=== PATIENT | male | born 1950 | race Two or more races ===

== ENCOUNTER → 2022-01-06 13:56 | Outpatient (BNVA) | payer MEDICARE, SELFPAY | PROVIDERS: PCP Internal Medicine; Visit Provider Hospitalist | DX: G47.31 Primary central sleep apnea (principal); I50.9 Heart failure, unspecified; R47.01 Aphasia; J90 Pleural effusion, not elsewhere classified; R06.00 Dyspnea, unspecified | CPT/HCPCS: 99212 ==

== ENCOUNTER → 2022-07-15 14:02 | Outpatient (BNVA) | payer MEDICARE, SELFPAY | PROVIDERS: PCP Internal Medicine; Visit Provider Hospitalist | DX: G47.31 Primary central sleep apnea (principal); I50.9 Heart failure, unspecified; R47.01 Aphasia; J90 Pleural effusion, not elsewhere classified; R06.00 Dyspnea, unspecified | CPT/HCPCS: 99212 ==

== ENCOUNTER → 2022-10-16 14:43 | Outpatient (REF) | payer MEDICARE, SELFPAY | LOC: HO.SL 14:43 | PROVIDERS: Visit Provider Hospitalist | DX: G47.33 Obstructive sleep apnea (adult) (pediatric) (principal); G47.31 Primary central sleep apnea | CPT/HCPCS: 95806 ==

== ENCOUNTER 2023-05-22 14:26 | Outpatient (AMB) | payer MEDICARE, SELFPAY ==
--- NOTE | 2023-05-22 14:30 | MHC.OFFVIS ---
Intake Vital Signs 05/22/23 14:32 Height 5 ft 9 in Weight 186 lb BMI 27.5 Pulse 81 Pulse Source Pulse Oximeter Pulse Oximetry (%) 96 Oxygen Delivery Method Room Air Intake Visit Reasons: Obstructive sleep apnea Alley Tender Required: No Allergies No Known Allergies Allergy (Verified 05/22/23 14:34) HPI HPI Comments History of Present Illness Details The patient is a 72-year-old gentleman with a known history of cardiomyopathy, complex sleep apnea and cerebrovascular disease. Apparently he was at and states he started developing worsening shortness of breath. He was admitted to a hospital for congestive heart failure. While was coming [place] state his noticed increasing lower extremity edema and shortness of breath not abdominal girth. She crease is Lasix briefly. The patient then was taken to [facility] on the night after his arrival because of worsening shortness of breath and respiratory distress. The patient had a proBNP of 5000 and also an x-ray with extensive pulmonary edema. Based on the evaluation was told to take additional oral diuretic and was sent home. However, his condition obviously worsen he was taken to [facility] he was admitted to the hospital. There he was evaluated by Cardiology. He had an ejection fraction about 40% per report. The patient also had a CT scan of the chest but I do not have those results was noted to have pleural effusions. However with picture of congestive heart failure the patient was diuresed. He did not require thoracentesis. Subsequently was discharged from the hospital on Lasix twice a day. Since he has been discharged from the hospital was has wane him closely. Will we will we lb since he was discharged couple days a on examination does have some crackles bilaterally suggestive of congestive heart failure. I did recommend that he take an additional Lasix tablet today. Will continue to be monitored closely. He is trying to maintain a low-sodium or note sodium diet as much as possible. The patient That will see Cardiology due to try to avoid rehospitalization. The medications will be adjusted the the patient had full doctor had that in the hospital so therefore I will will get a referral for urgent visit with [facility] cardiology. in the meantime he has been using CPAP. Patient understands that the CPAP becomes helpful but decrease in some of the work from the heart. 07/15/2022 the patient is here for a pulmonary follow-up visit. Overall the patient continues to be doing about the same. Continues to have issues with his residual infection his stroke. Still has aphasia and difficulty following commands. Otherwise patient is doing well. He continues uses CPAP at nighttime. The CPAP therapy continues to be affecting beneficial. He does use it for more than 4 hours a night. Recently however the machine has not been working appropriately. He and his spoke to the [employer] and they still recommend that he get a replacement machine at this time. In view of this mi function machine any significant cerebrovascular and cardiovascular disease will be important for her to get a replacement machine for him to continue to use it treating his underlying sleep apnea. We did review his last imaging studies including a chest x-ray from the fall 2021 when he had congestive heart failure. The patient now is doing better with his medications and his cardiac function appears to be stable. 05/22/2023 the patient is here for a hospital follow-up visit. The patient has had a very eventful 6 months. He has been in and out of [facility] for heart failure. The patient has had significant flash pulmonary edema resulted in respiratory failure. The patient has been followed closely by Cardiology. He also developed a component of renal insufficiency suggesting pulmonary renal syndrome. The states that at 1 point they did talk to her about hospice care because of significant cardiomyopathy. I do not have his EF. Does have a defibrillator. The defibrillator did go off because of ventricular fibrillation. Currently he is on amiodarone small dose of 200 mg daily. He is also on Eliquis. Continues uses CPAP the CPAP therapy continues to be affecting beneficial. I did request a download. Appears that he is having significant central apneas because of his complex sleep apnea. Prior to having the CPAP he did have an ASV. However, now with a cardiomyopathy this is not warranted. Therefore, will go head and try to decrease the CPAP pressures in order to avoid worsening central apneas. [facility] Medical History (Updated 05/24/23 @ 21:28 by Manny Dodd MD) Dyspnea Pleural effusion Aphasia Complex sleep apnea syndrome Social History (Updated 01/06/22 @ 14:37 by SHANNON Donahue) Patient Tobacco Use Status: Never used Tobacco Review of Systems Const Unobtainable due to mental condition ( Patient suffers from aphasia after a CVA) Card Reports leg edema, Reports dyspnea and Reports dyspnea on exertion Resp Reports dyspnea and Reports dyspnea on exertion Physical Exam Vital Signs: Last Vital Signs Pulse 81 05/22/23 14:32 Pulse Ox 96 05/22/23 14:32 Oxygen Delivery Method Room Air 05/22/23 14:32 BMI result Body Mass Index 27.5 Const General: comfortable HEENT Head: Yes normal to inspection Eyes General: appearance normal, both eyes and all related structures Neck Neck: Yes supple Chest Chest palpation & inspection: normal inspection of the chest Resp Effort & Inspection: normal respiratory effort Auscultation: diminished lung sounds Cardio Rate: regular rate Rhythm: regular rhythm Heart sounds: S1 normal heart sound present, S2 normal heart sound present and Murmur heart sound present GI Auscultation: normal bowel sounds Skin General skin exam: no rashes or lesions noted Extrem General: No clubbing, No cyanosis and Yes edema Assessment & Plan Assessment & Plan (1) CHF (congestive heart failure): Code(s): I50.9 - Heart failure, unspecified Qualifiers: Heart failure type: systolic Heart failure chronicity: chronic Qualified Code(s): I50.22 - Chronic systolic (congestive) heart failure (2) Complex sleep apnea syndrome: Code(s): G47.31 - Primary central sleep apnea (3) Aphasia: Code(s): R47.01 - Aphasia (4) Pleural effusion: Code(s): J90 - Pleural effusion, not elsewhere classified (5) Dyspnea: Code(s): R06.00 - Dyspnea, unspecified Qualifiers: Dyspnea type: orthopnea Qualified Code(s): R06.01 - Orthopnea Plan Diuresis as tolerated continue APAP, adjusted to 6-10 Follow-up in 6 months Coding Level of Care Code Est Pt Level 4 (45554) Diagnoses Chronic systolic congestive heart failure I50.22 Heart failure type: systolic Heart failure chronicity: chronic Complex sleep apnea syndrome G47.31 Aphasia R47.01 Pleural effusion J90 Orthopnea R06.01 Dyspnea type: orthopnea Time Spent (min) 18
[2023-05-22 14:32] VITALS: PULSE 81; O2SAT 96; BMI 27.5
== END 2023-05-22 15:01 | disposition home or self-care (01) ==
PROVIDERS: PCP Internal Medicine; Visit Provider Hospitalist
DX: I50.22 Chronic systolic (congestive) heart failure (principal); G47.31 Primary central sleep apnea; R47.01 Aphasia; J90 Pleural effusion, not elsewhere classified; R06.01 Orthopnea
CPT/HCPCS: 99214

== ENCOUNTER → 2023-05-22 14:26 | Outpatient (BNVA) | payer MEDICARE, SELFPAY | PROVIDERS: PCP Internal Medicine; Visit Provider Hospitalist | DX: G47.31 Primary central sleep apnea (principal); I50.22 Chronic systolic (congestive) heart failure; R47.01 Aphasia; J90 Pleural effusion, not elsewhere classified; R06.01 Orthopnea | CPT/HCPCS: 99212 ==

== ENCOUNTER 2023-08-12 14:11 | Outpatient (REF) | payer MEDICARE, SELFPAY ==
--- NOTE | ~2023-08-12 | FL_ITS ---
EXAMINATION: Modified Barium Swallow CLINICAL INFORMATION: Dysphagia COMPARISON: None TECHNIQUE: Modified barium swallow was performed under lateral fluoroscopy with patient in standing position. Barium mixed with solids and liquids of different consistencies was administered by the speech pathologist. Examination was recorded in the fluoroscopy suite. FINDINGS: Laryngeal penetration was seen with thin and nectar thick barium. No aspiration was observed. FLUOROSCOPY TIME: 2 minutes 18 seconds Number of Spot Images: 1 DOSE AREA PRODUCT: 892 uGy-m2 (microgray-meter squared) FL/FL barium swallow modified IMPRESSION: Laryngeal penetration was seen with thin and nectar thick barium. No aspiration was observed. Refer to the speech therapy report for further clarification This procedure was performed by Isaias Caicedo PA-C, and supervised by Dr. Smith
--- NOTE | 2023-09-11 14:35 | MHC.SL.IMP ---
Date of Plan of Treatment: 08/12/23 Onset of Symptoms/Illness: 07/07/23 Date Treatment Started: 08/12/23 Admitting Diagnosis: Dysphagia Primary Speech & Language Diagnosis: R13.12 Oropharyngeal Phase Dysphagia Reason for Today's Visit: 08078 Modified Barium Swallow Study Pre-evaluation Dietary Consistencies: Pre-evaluation Liquid Consistency: Pre-evaluation Medication Administration: Medical History: Modified Barium Swallow Study Fluoroscopic Evaluation of Swallowing Function CPT Code 86361 Evaluation Year: 2023 Reason for Study: Difficulty swallowing Referring Physician: Ronnie Ochoa MD Evaluating Clinician: Alva Addison MA, CCC-ENGAGEMENT LIAISON Study Number: 1 Patient Name: Eris Vilchis Status: Outpatient Age: 73 Gender: Male Medical History Dyspnea, pleural effusion, aphasia, complex sleep apnea syndrome, cardiomyopathy, cerebrovascular disease SUBJECTIVE: Patient is a 73 year old male referred for a modified barium swallow study by his primary care physician, Ronnie Ochoa MD, due to reports of choking. Patient?s reports patient is vomiting and expectorating food at meal time, especially when he has certain foods such as hot cereal with tea. Food and Liquid Trials: Oral Impairment: Lip Closure: Did not test Oral Impairment: Tongue Control During Bolus Hold: Did not test Oral Impairment: Bolus Preparation/Mastication: 1=Slow prolonged chewing/mashing with complete re-collection Oral Impairment: Bolus Transport/Lingual Motion: 1= Delayed initiation of tongue motion Oral Impairment: Oral Residue: 2=Residue collection on oral structures Oral Impairment:Initiation of Pharyngeal Swallow: 3=Bolus head in pyriforms Pharyngeal Impairment: Soft Palate Elevation: 0=No bolus between soft palate (SP)/pharyngeal wall (PW) Pharyngeal Impairment: Laryngeal Elevation: 1=Partial thyroid cartilage/arytenoids to epiglottic petiole movement Pharyngeal Impairment: Anterior Hyoid Excursion: 1=Partial anterior movement Pharyngeal Impairment: Epiglottic Movement: 1=Partial inversion Pharyngeal Impairment: Laryngeal Vestibular Closure:: 1=Incomplete: narrow column air/contrast in laryngeal vestibule Pharyngeal Impairment: Pharyngeal Stripping Wave: 0=Present: complete Pharyngeal Impairment: Pharyngeal Contraction: Did not test Pharyngeal Impairment: Pharyngoesophageal Segment Openin=Partial distention/partial duration: partial obstruction of flow Pharyngeal Impairment: Tongue Base (TB) Retraction: 3=Wide column of contrast/air between TB and posterior PW Pharyngeal Impairment: Pharyngeal Residue: 2=Collection of residue within or on pharyngeal structures Pharyngeal Impairment: Esophageal Clearance Upright Position: Did not test Impressions and Recommendations OBJECTIVE: Time-out: performed at 15:00 Evaluation Start: 14:30; Stop: 14:35 Viewing Planes: LATERAL ONLY Contrast: MBSImP? Standardized Protocol using commercially prepared, standardized Barium viscosities, including: Varibar? THIN LIQUID (40% w/v, <15 cps) , Varibar? NECTAR (40% w/v, <150-450 cps) , 1/2 Shortbread Cookie (1 x1 x.25 ) MBSImP ID: [id number] MBSImP Results: Lip closure for intraoral bolus containment could not be assessed due to logistical reasons not related to physiologic impairment. Tongue control during bolus hold could not be assessed due to logistical reasons not related to physiologic impairment. Bolus preparation and mastication resulted in slow, prolonged chewing/mashing but with complete re-collection. Bolus transport/lingual motion demonstrated delayed initiation of tongue motion. Oral residue was a collection on oral structures. Initiation of the pharyngeal swallow occurred when the bolus head was in the pyriform sinuses. Soft palate elevation resulted in no bolus between the soft palate and the pharyngeal wall. Laryngeal elevation was decreased, with partial superior movement of the thyroid cartilage/partial approximation of the arytenoids to the epiglottic petiole. Anterior hyoid excursion demonstrated partial anterior movement. Epiglottic movement resulted in partial inversion. Laryngeal vestibular closure was incomplete, with a narrow column of air/contrast noted within the laryngeal vestibule at the height of the swallow. Pharyngeal stripping wave was present and complete. Pharyngeal contraction could not be determined due to logistical reasons not related to physiologic impairment. Pharyngoesophageal segment opening demonstrated partial distension/partial duration, with partial obstruction of bolus flow. Tongue base retraction allowed a wide column of contrast or air between the retracted tongue base and the posterior pharyngeal wall. Pharyngeal residue was a collection of residue within or on pharyngeal structures. Esophageal clearance in the upright position could not be assessed due to logistical reasons not related to physiologic impairment. Oral Impairment Score: 7 (absence of score, component 1component 2) Pharyngeal Impairment Score: 10 (absence of score, component 13) Esophageal Impairment Score: --- (absence of score, component 17) Laryngeal Penetration and Aspiration: Penetration was observed in today's study. Darby-thick Contrast entered the airway, remained above the vocal folds, and was ejected from the airway. Thin Contrast entered the airway, contacted the vocal folds, and was ejected from the airway. ASSESSMENT: This exam was conducted by the speech pathologist and the radiologist. Oral and pharyngeal phases of the swallow were assessed in the lateral view with patient trialing thin, nectar thick, puree, and regular solid textures. Note prolonged period of mastication with delayed posterior lingual transport of bolus. Pharyngeal swallow trigger was also delayed, initiated at the level of the pyriforms. Post-swallow, there was mild lingual residue, which mostly cleared with subsequent swallows. No evidence of nasopharyngeal reflux. Partial laryngeal elevation with partial epiglottic inversion and partial laryngeal vestibular closure. There was trace penetration intermittently occurring with intake of thin liquid. Contrast entered the airway to the level of the vocal folds and was ejected with subsequent swallows and when patient elicited a volitional throat clear. There was trace penetration above the vocal folds with intake of nectar thick, which subsequently cleared. No evidence of aspiration during this exam. Mild retention on the posterior pharyngeal wall and in the valleculae and pyriform sinuses. Liquid Intake Recommendation: Thin Liquid Intake Strategies: Small Sips, No Straws, Double Swallow Dietary Recommendations: Regular- Select soft, easy to chew Medication Administration: Whole with Puree Please contact the pharmacy regarding appropriate crushable or liquid drug formulations that are available whenever modified delivery is recommended. Compensatory Strategies Recommended: Sitting Upright (90 deg), Double Swallow, No Straw, Small Bites and Sips, Alternate Liquids/Solids, Rate of Ingestion Change, Oral Check, Avoid Specific Foods Supervision during eating and or drinking: Total Assistance (1:1) Recommendation for Speech Therapy: Text Comment: Intake Recommendations: Route: PO Diet Grade: Select soft easy to chew foods Liquid Consistencies: Thin Post-Study Functional Oral Intake Scale (FOIS): 5- Total oral intake of multiple consistencies requiring special preparation This exam revealed trace penetration with thin and nectar thick consistencies. Cleared with volitional throat clear and subsequent swallows. No evidence of aspiration during this exam. Mild oral and pharyngeal residue mostly cleared with subsequent swallows. Based on observations made during this exam, the following strategies are recommended to maximize feeding safety: -Minimize distraction during meal time -Ensure patient is awake, alert, and attending to meal -Select foods which are soft and easy to chew -Avoid hard, crunchy, or sticky foods and mixed textures -Give small bites of food -Watch for swallow and check oral cavity for clearance before giving next bite -Maintain upright 90 degree position while eating and drinking -Liquids by teaspoon or controlled cup and give small, individual sips -Watch for swallow and check oral cavity for clearance before giving next sip -Cue patient to clear his throat between sips as needed -Avoid the use of straws -Maintain frequent oral care routine. These recommendations were communicated to patient?s /caregiver after the exam. ENGAGEMENT LIAISON educated patient and his on MBSS results and recommended strategies and provided clarification as needed. Patient?s denied having any further questions at this time. Recommend patient?s caregiver(s) to continue monitoring his dysphagia. If there are any changes or worsening of symptoms, consult with MD, at which point a re-evaluation may be indicated. Clinician - Supplemental, Miscellaneous Communication: It is important to note MBSS objective studies are snapshots in time and Patient function might vary with factors such as time of day or concomitant medical conditions. For this reason, the final treatment plan for this patient should rest with their medical care team. Additional recommendations should be considered with the totality of the Patient in mind. Thank for the opportunity to participate in the care of this patient. If you have any questions about the content of this report, please contact the [facility]. Education: Education regarding findings from today's study and plans for therapy were provided to Patient and family/caregiver through Verbal Instruction. Understanding was expressed by the Patient and family/caregiver. Toe Puncher Clinician/Clinical Fellow: No Supervisory Statement: N/A Speech Language Pathologist: Alva Addison M.A., [facility]-ENGAGEMENT LIAISON
== END 2023-08-12 14:12 | disposition home or self-care (01) ==
LOC: HO.XRAY 14:11
PROVIDERS: PCP Internal Medicine; Visit Provider Internal Medicine
DX: R13.10 Dysphagia, unspecified (principal)
CPT/HCPCS: 74230; 92611

== ENCOUNTER → 2023-08-12 14:25 | Outpatient (BNV) | payer MEDICARE, SELFPAY | PROVIDERS: PCP Internal Medicine; Visit Provider Physician Assistant Surgical | DX: R13.10 Dysphagia, unspecified (principal) | CPT/HCPCS: 74230 ==

== ENCOUNTER 2023-11-26 14:08 | Outpatient (AMB) | payer MEDICARE, SELFPAY ==
[2023-11-26 14:14] VITALS: BP 90/58; PULSE 71; O2SAT 100; BMI 26.7
--- NOTE | 2023-11-26 14:14 | MHC.OFFVIS ---
Vital Signs 11/26/23 14:14 Height 5 ft 9 in Weight 181 lb BMI 26.7 BP 90/58 L Blood Pressure Location Lt brachial Position Sitting Pulse 71 Pulse Source Doppler Pulse Oximetry (%) 100 Oxygen Delivery Method Room Air Intake Visit Reasons: Obstructive sleep apnea Allergies No Known Allergies Allergy (Verified 05/22/23 14:34) HPI Comments Details: The patient is a 73-year-old gentleman with a known history of cardiomyopathy, complex sleep apnea and cerebrovascular disease. Apparently he was at and states he started developing worsening shortness of breath. He was admitted to a hospital for congestive heart failure. [place] his noticed increasing lower extremity edema and shortness of breath not abdominal girth. She crease is Lasix briefly. The patient then was taken to [facility] on the night after his arrival because of worsening shortness of breath and respiratory distress. The patient had a proBNP of 5000 and also an x-ray with extensive pulmonary edema. Based on the evaluation was told to take additional oral diuretic and was sent home. However, his condition obviously worsen he was taken to [facility] he was admitted to the hospital. There he was evaluated by Cardiology. He had an ejection fraction about 40% per report. The patient also had a CT scan of the chest but I do not have those results was noted to have pleural effusions. However with picture of congestive heart failure the patient was diuresed. He did not require thoracentesis. Subsequently was discharged from the hospital on Lasix twice a day. Since he has been discharged from the hospital was has wane him closely. Will we will we lb since he was discharged couple days a on examination does have some crackles bilaterally suggestive of congestive heart failure. I did recommend that he take an additional Lasix tablet today. Will continue to be monitored closely. He is trying to maintain a low-sodium or note sodium diet as much as possible. The patient That will see Cardiology due to try to avoid rehospitalization. The medications will be adjusted the the patient had full doctor had that in the hospital so therefore I will will get a referral for urgent visit with [facility] cardiology. in the meantime he has been using CPAP. Patient understands that the CPAP becomes helpful but decrease in some of the work from the heart. 07/15/2022 the patient is here for a pulmonary follow-up visit. Overall the patient continues to be doing about the same. Continues to have issues with his residual infection his stroke. Still has aphasia and difficulty following commands. Otherwise patient is doing well. He continues uses CPAP at nighttime. The CPAP therapy continues to be affecting beneficial. He does use it for more than 4 hours a night. Recently however the machine has not been working appropriately. He and his spoke to the [facility] [email or web address] and they still recommend that he get a replacement machine at this time. In view of this mi function machine any significant cerebrovascular and cardiovascular disease will be important for her to get a replacement machine for him to continue to use it treating his underlying sleep apnea. We did review his last imaging studies including a chest x-ray from the fall 2021 when he had congestive heart failure. The patient now is doing better with his medications and his cardiac function appears to be stable. 05/22/2023 the patient is here for a hospital follow-up visit. The patient has had a very eventful 6 months. He has been in and out of [facility] for heart failure. The patient has had significant flash pulmonary edema resulted in respiratory failure. The patient has been followed closely by Cardiology. He also developed a component of renal insufficiency suggesting pulmonary renal syndrome. The states that at 1 point they did talk to her about hospice care because of significant cardiomyopathy. I do not have his EF. Does have a defibrillator. The defibrillator did go off because of ventricular fibrillation. Currently he is on amiodarone small dose of 200 mg daily. He is also on Eliquis. Continues uses CPAP the CPAP therapy continues to be affecting beneficial. I did request a download. Appears that he is having significant central apneas because of his complex sleep apnea. Prior to having the CPAP he did have an ASV. However, now with a cardiomyopathy this is not warranted. Therefore, will go head and try to decrease the CPAP pressures in order to avoid worsening central apneas. 11/26/2023 the patient is here for a pulmonary follow-up visit. The patient has been using the CPAP every night. The CPAP therapy has been helpful for him. Sometimes he wears his mask losing does have significant air leakage her. His constantly is trying to fix it. He also complains of some dyspnea on exertion. [id number] severity. During the visit we did go for brief walking oximetry he did very well no evidence of any hypoxia. He did have a tremor but heart rate was stable. The patient has been on APAP 6-10. I did download the machine. His AHI however is 24 events per hour primarily of them are central apneas. We know that he has complex sleep apnea. He does have a cardiomyopathy so is limited as far as the PAP therapies that may be provided. In the meantime I do believe that a titration study will be helpful to see if we can appropriately tailor his therapy more adequately. In addition to that will go ahead and decrease the pressures to 6-8 to try to minimize in the central apneas. He does have issues with communication specially after his stroke. So therefore will have to make sure that his can stay with him during the study to help with communication. [facility] Medical History (Updated 11/26/23 @ 22:36 by Manny Dodd MD) Cardiomyopathy Dyspnea Pleural effusion Aphasia Complex sleep apnea syndrome Social History (Updated 01/06/22 @ 14:37 by Dianelys Gerard Juvenal) Patient Tobacco Use Status: Never used Tobacco Review of Systems Const Unobtainable due to mental condition ( Patient suffers from aphasia after a CVA) Card Reports leg edema, Reports dyspnea and Reports dyspnea on exertion Resp Reports dyspnea and Reports dyspnea on exertion Physical Exam Vital Signs: Last Vital Signs Pulse 71 11/26/23 14:14 BP 90/58 L 11/26/23 14:14 Pulse Ox 100 11/26/23 14:14 Oxygen Delivery Method Room Air 11/26/23 14:14 BMI result Body Mass Index 26.7 Const General: comfortable HEENT Head: Yes normal to inspection Eyes General: appearance normal, both eyes and all related structures Neck Neck: Yes supple Chest Chest palpation & inspection: normal inspection of the chest Resp Effort & Inspection: normal respiratory effort Auscultation: diminished lung sounds Cardio Rate: regular rate Rhythm: regular rhythm Heart sounds: S1 normal heart sound present, S2 normal heart sound present and Murmur heart sound present GI Auscultation: normal bowel sounds Skin General skin exam: no rashes or lesions noted Extrem General: No clubbing, No cyanosis and Yes edema Assessment & Plan Assessment & Plan (1) CHF (congestive heart failure): Code(s): I50.9 - Heart failure, unspecified Category: Medical Qualifiers: Heart failure chronicity: chronic Heart failure type: systolic Qualified Code(s): I50.22 - Chronic systolic (congestive) heart failure (2) Complex sleep apnea syndrome: Code(s): G47.31 - Primary central sleep apnea Category: Medical (3) Aphasia: Code(s): R47.01 - Aphasia Category: Medical (4) Pleural effusion: Code(s): J90 - Pleural effusion, not elsewhere classified Category: Medical (5) Dyspnea: Code(s): R06.00 - Dyspnea, unspecified Category: Medical Qualifiers: Dyspnea type: orthopnea Qualified Code(s): R06.01 - Orthopnea Plan Diuresis as tolerated continue APAP, adjusted to 6-8 Requesting in-lab sleep titration study at [facility]. He does not communicate and will need his to stay with him for communication. Follow-up in 4-6 months Orders: Orders RT PSG in-lab sleep titration Today G47.31 - Primary central sleep apnea, I42.9 - Cardiomyopathy, unspecified, I50.22 - Chronic systolic (congestive) heart failure Coding Level of Care Code Est Pt Level 4 (34111) Complex EM visit Add On G2211 Diagnoses Chronic systolic congestive heart failure I50.22 Heart failure chronicity: chronic Heart failure type: systolic Complex sleep apnea syndrome G47.31 Aphasia R47.01 Pleural effusion J90 Orthopnea R06.01 Dyspnea type: orthopnea Time Spent (min) 18
== END 2023-11-26 14:44 | disposition home or self-care (01) ==
PROVIDERS: PCP Internal Medicine; Visit Provider Hospitalist
DX: I50.22 Chronic systolic (congestive) heart failure (principal); G47.31 Primary central sleep apnea; R47.01 Aphasia; J90 Pleural effusion, not elsewhere classified; R06.01 Orthopnea
CPT/HCPCS: 99214; G2211

== ENCOUNTER → 2023-11-26 14:08 | Outpatient (BNVA) | payer MEDICARE, SELFPAY | PROVIDERS: PCP Internal Medicine; Visit Provider Hospitalist | DX: I11.0 Hypertensive heart disease with heart failure (principal); I50.22 Chronic systolic (congestive) heart failure; G47.31 Primary central sleep apnea; J90 Pleural effusion, not elsewhere classified; R06.01 Orthopnea; R47.01 Aphasia | CPT/HCPCS: 99212 ==

== ENCOUNTER 2024-03-31 13:05 | Outpatient (AMB) | payer MEDICARE, SELFPAY ==
--- OUTSIDE RECORDS SUMMARY | 2024-03-31 13:09 | XMS_ITS | Clinical Summary ---
Author Organization Unknown Care Team Providers Care Bariatric Surgeon Name Role Phone VU GRACE, LESTER Unavailable Unavailable LUCRETIA RN, JANAY Unavailable Unavailable NEISHA RN, COTY Unavailable Unavailable MOMO RN, CLINICAL TEAM SPECIALIST, INGE Romeo available Unavailable SEDA RN, JAIDEN Unavailable Unavailable TRAN PEREAW, TANISHA Unavailable Unavailable Payers Payer Name Policy Type Policy Number Effective Date Expira tion Date [place]IC[place] - [place] [id number] [facility] ADV [id number] Problems Condition Name Condition Details Condition Category Status Onset Date Resolution Date Last Treatment Date Treating Clinician Comments CHRONIC ATRIAL FIBRILLATION , UNSPECIFIED Active 04-20 00:00: 00 HYP HRT AND CHR KDNY DIS W HRT FAIL AND STG 1-4/UNSP CHR KDNY Active 04-20 00:00: 00 CHRONIC SYSTOLIC (CONGESTIVE) HEART FAILURE Active 04-20 00:00: 00 TYPE 2 DIABETES MELLITUS W DIABETIC CHRONIC KIDNEY DISEASE Active 04-20 00:00: 00 CHRONIC KIDNEY DISEASE, STAGE 3B Active 04-20 00:00: 00 UNSPECIFIED ATRIAL FLUTTER Active 04-20 00:00: 00 OTHER CARDIOMYOPAT HIES Active 04-20 00:00: 00 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 04-20 00:00: 00 PULMONARY HYPERTENSION , UNSPECIFIED Active 04-20 00:00: 00 APHASIA FOLLOWING CEREBRAL INFARCTION Active 04-20 00:00: 00 EPILEPSY, UNSP, NOT INTRACTABLE, WITHOUT STATUS EPILEPTICUS Active 04-20 00:00: 00 DEM IN OTHER DISEASES CLASSD ELSWHR, MODERATE, WITH ANXIETY Active 04-20 00:00: 00 DEM IN OTHER DIS CLASSD ELSWHR, MOD, WITH OTHER BEH DISTURB Active 04-20 00:00: 00 OBSTRUCTIVE SLEEP APNEA (ADULT) (PEDIATRIC) Active 04-20 00:00: 00 DEM IN OTHER DIS CLASSD ELSWHR, MODERATE, WITH MOOD DISTURB Active 04-20 00:00: 00 DEPRESSION, UNSPECIFIED Active 04-20 00:00: 00 ATHSCL HEART DISEASE OF [place] CORONARY ARTERY W/O ANG PCTRS Active 04-20 00:00: 00 BENIGN PROSTATIC HYPERPLASIA WITH LOWER URINARY TRACT SYMP Active 04-20 00:00: 00 OTHER OBSTRUCTIVE AND REFLUX UROPATHY Active 04-20 00:00: 00 OTHER VENTRICULAR TACHYCARDIA Active 04-20 00:00: 00 OTHER SYMPTOMS AND SIGNS W COGN FNCTNS FOL CEREBRAL INFRC Active 04-20 00:00: 00 UNSPECIFIED GLAUCOMA Active 04-20 00:00: 00 HYPERLIPIDEM IA, UNSPECIFIED Active 04-20 00:00: 00 BI INGUINAL HERNIA, W/O OBST OR GANGRENE, NOT SPCF RECUR Active 04-20 00:00: 00 PERSONAL HISTORY OF COVID-19 Active 04-20 00:00: 00 PRESENCE OF AUTOMATIC (IMPLANTABLE ) CARDIAC DEFIBRILLATO R Active 04-20 00:00: 00 PERSONAL HISTORY OF NICOTINE DEPENDENCE Active 04-20 00:00: 00 AGRICULTURAL PRODUCTION ENGINEER (CURRENT) USE OF INSULIN Active 04-20 00:00: 00 SENIOR CARE (CURRENT) USE OF ORAL HYPOGLYCEMIC DRUGS Active 04-20 00:00: 00 Problems related to health literacy Active 04-20 00:00: 00 SENIOR CARE (CURRENT) USE OF ANTICOAGULAN TS Active 04-20 00:00: 00 LNG TRM (CRNT) USE INJECTABLE NON-INSULIN ANTIDIABETIC DRUGS Active 04-20 00:00: 00 ACUTE KIDNEY FAILURE, UNSPECIFIED Active 08 00:00: 00 Allergies, Adverse Reactions, Alerts Allergy Name Allergy Type Status Severity Reaction(s) Onset Date Inactive Date Treating Clinician Comments NKA Propensity to adverse reactions Active 2023-02 23:34:2 7 Medications Ordered Medication Name Filled Medication Name Start Date Stop Date Current Medication? Ordering Clinician Indication Dosage Frequency Signature (SIG) Comments Components Lexapro 10 mg tablet 2022-04 00:00: 00 Yes [id number] 1.5 tablet DAILY 1.5 tablet DAILY (route: oral) Med Classific ation: Central Nervous System Agents metoprolol succinate ER 50 mg tablet,exte nded release 24 hr 2022-04 00:00: 00 02-12 23:59 :00 No [id number] 2 tablet DAILY 2 tablet DAILY (route: oral) Med Classific ation: Cardiovas cular Therapy Agents torsemide 20 mg tablet 2022-04 00:00: 00 02-12 23:59 :00 No [id number] Per instruc tions DAILY Per instructio ns DAILY (route: oral) Med Classific ation: Cardiovas cular Therapy Agents amiodarone 200 mg tablet 2022-04 00:00: 00 02-18 23:59 :00 No [id number] 1 tablet 2 TIMES DAILY 1 tablet 2 TIMES DAILY (route: oral) Med Classific ation: Cardiovas cular Therapy Agents amiodarone 200 mg tablet 2022-04 00:00: 00 Yes [id number] 1 tablet DAILY 1 tablet DAILY (route: oral) Med Classific ation: Cardiovas cular Therapy Agents furosemide 80 mg tablet 2022-04 00:00: 00 03-17 00:00 :00 No [id number] 1 tablet DAILY 1 tablet DAILY (route: oral) Med Classific ation: Cardiovas cular Therapy Agents mexiletine 150 mg capsule 2022-04 00:00: 00 03-23 23:59 :00 No [id number] 1 capsule EVERY 8 HOURS 1 capsule EVERY 8 HOURS (route: oral) Med Classific ation: Cardiovas cular Therapy Agents oxybutynin chloride 5 mg tablet 2022-04 00:00: 00 03-17 00:00 :00 No [id number] 1 tablet DAILY 1 tablet DAILY (route: oral) Med Classific ation: Genitouri nary Therapy Tylenol Extra Strength 500 mg tablet 2022-04 00:00: 00 Yes [id number] 2 tablet 2 TIMES DAILY 2 tablet 2 TIMES DAILY (route: oral) Med Classific ation: Analgesic , Anti-infl ammatory or Antipyret ic Vitamin C 500 mg tablet 2022-04 00:00: 00 Yes [id number] 1 tablet DAILY 1 tablet DAILY (route: oral) Med Classific ation: Electroly te Balance-N utritiona l Products Vitamin D3 125 mcg (5,000 unit) tablet 2022-04 00:00: 00 Yes [id number] 1 tablet EVERY OTHER DAY 1 tablet EVERY OTHER DAY (route: oral) Med Classific ation: Electroly te Balance-N utritiona l Products zinc gluconate 50 mg tablet 2022-04 00:00: 00 Yes [id number] 1 tablet DAILY 1 tablet DAILY (route: oral) Med Classific ation: Electroly te Balance-N utritiona l Products metoprolol succinate ER 25 mg tablet,exte nded release 24 hr 2022-04 00:00: 00 06-09 00:00 :00 No [id number] 1 tablet DAILY 1 tablet DAILY (route: oral) Med Classific ation: Cardiovas cular Therapy Agents Eliquis 5 mg tablet 2022-04 00:00: 00 Yes [id number] 1 tablet 2 TIMES DAILY 1 tablet 2 TIMES DAILY (route: oral) Med Classific ation: Hematolog ical Agents atorvastati n 20 mg tablet 2022-04 00:00: 00 Yes [id number] 1 tablet BEDTIME 1 tablet BEDTIME (route: oral) Med Classific ation: Cardiovas cular Therapy Agents finasteride 5 mg tablet 2022-04 00:00: 00 Yes [id number] 1 tablet DAILY 1 tablet DAILY (route: oral) Med Classific ation: Genitouri nary Therapy insulin glargine (U-100) 100 unit/mL (3 mL) subcutaneou s pen 2022-04 00:00: 00 03-04 23:59 :00 No [id number] 30 unit 2 TIMES DAILY 30 unit 2 TIMES DAILY (route: subcutaneo us) Med Classific ation: Endocrine Keppra 250 mg tablet 2022-04 0 00:00: 00 09-10 00:00 :00 No [id number] 1 tablet 2 TIMES DAILY 1 tablet 2 TIMES DAILY (route: oral) Med Classific ation: Central Nervous System Agents metformin 1,000 mg tablet 2022-04 00:00: 00 Yes [id number] 1 tablet 2 TIMES DAILY 1 tablet 2 TIMES DAILY (route: oral) Med Classific ation: Endocrine Risperdal 1 mg tablet 2022-04 00:00: 00 03-23 23:59 :00 No [id number] 1 tablet DAILY 1 tablet DAILY (route: oral) Med Classific ation: Central Nervous System Agents tamsulosin 0.4 mg capsule 2022-04 00:00: 00 03-23 23:59 :00 No [id number] 1 capsule DAILY 1 capsule DAILY (route: oral) Med Classific ation: Genitouri nary Therapy insulin glargine (U-100) 100 unit/mL subcutaneou s solution 2022-04 1 00:00: 00 03-23 23:59 :00 No [id number] 10 unit DAILY 10 unit DAILY [facility] Med Classific ation: Endocrine Ozempic 1 mg/dose (4 mg/3 mL) subcutaneou s pen injector 2022-04 00:00: 00 Yes [id number] 1 mg WEEKLY 1 mg WEEKLY (route: subcutaneo us) Med Classific ation: Endocrine torsemide 20 mg tablet 2022-04 00:00: 00 03-24 23:59 :00 No [id number] 1 tablet 2 TIMES DAILY 1 tablet 2 TIMES DAILY (route: oral) Med Classific ation: Cardiovas cular Therapy Agents Farxiga 10 mg tablet 2022-04 00:00: 00 08-26 23:59 :00 No [id number] 1 tablet DAILY 1 tablet DAILY (route: oral) Med Classific ation: Endocrine insulin glargine (U-100) 100 unit/mL subcutaneou s solution 2022-04 00:00: 00 Yes [id number] 10 unit 2 TIMES DAILY 10 unit 2 TIMES DAILY (route: subcutaneo us) Med Classific ation: Endocrine mexiletine 150 mg capsule 2022-04 2- 00:00: 00 Yes [id number] 1 capsule EVERY 12 HOURS 1 capsule EVERY 12 HOURS (route: oral) Med Classific ation: Cardiovas cular Therapy Agents Risperdal 1 mg tablet 2022-04- 00:00: 00 Yes [id number] 1 tablet BEDTIME 1 tablet BEDTIME (route: oral) Med Classific ation: Central Nervous System Agents torsemide 20 mg tablet 2022-04 00:00: 00 Yes [id number] 2 tablet 2 TIMES DAILY 2 tablet 2 TIMES DAILY (route: oral) Med Classific ation: Cardiovas cular Therapy Agents B Complex-Vit alvarez B12 tablet 2022-04 00:00: 00 Yes [id number] 1 tablet DAILY 1 tablet DAILY (route: oral) Med Classific ation: Electroly te Balance-N utritiona l Products multivitami n tablet 2022-04 00:00: 00 Yes [id number] 1 tablet DAILY 1 tablet DAILY (route: oral) Med Classific ation: Electroly te Balance-N utritiona l Products tamsulosin 0.4 mg capsule 2022-04 00:00: 00 06-06 23:59 :00 No [id number] 1 capsule BEDTIME 1 capsule BEDTIME (route: oral) Med Classific ation: Genitouri nary Therapy pantoprazol e 20 mg tablet,alexey yed release 1-13 00:00: 00 Yes [id number] 1 tablet DAILY 1 tablet DAILY (route: oral) Med Classific ation: Gastroint estinal Therapy Agents metoprolol succinate ER 25 mg tablet,exte nded release 24 hr 2-16 00:00: 00 Yes [id number] 1 tablet DAILY 1 tablet DAILY (route: oral) Med Classific ation: Cardiovas cular Therapy Agents nitrofurant oin macrocrysta l 100 mg capsule -16 00:00: 00 06-09 23:59 :00 No [id number] 1 capsule EVERY 6 HOURS 1 capsule EVERY 6 HOURS (route: oral) Med Classific ation: Genitouri nary Therapy amiodarone 400 mg tablet -16 00:00: 00 06-07 23:59 :00 No [id number] 1 tablet 2 TIMES DAILY 1 tablet 2 TIMES DAILY (route: oral) Med Classific ation: Cardiovas cular Therapy Agents Santyl 250 unit/gram topical ointment - 00:00: 00 Yes [id number] Per instruc tions DAILY Per instructio ns DAILY (route: topical) Med Classific ation: Dermatolo gical Jardiance 10 mg tablet 08-26 00:00: 00 Yes [id number] 1 tablet DAILY 1 tablet DAILY (route: oral) Med Classific ation: Endocrine Keppra 250 mg tablet 09-12 00:00: 00 09-27 23:59 :00 No [id number] 2 tablet 2 TIMES DAILY 2 tablet 2 TIMES DAILY (route: oral) Med Classific ation: Central Nervous System Agents Keppra 250 mg tablet 09-28 00:00: 00 Yes [id number] 1 tablet 2 TIMES DAILY 1 tablet 2 TIMES DAILY (route: oral) Med Classific ation: Central Nervous System Agents Immunizations Ordered Immunization Name Filled Immunization Name Date Status Comments Refusal Reason INFLUENZA, TIV (INACTIVATED) 2023-03-02 00:00:00 COVID-19, COVID-19 2021-03-05 00:00:00 Vital Signs Vital Name Observation Time Observation Value Commen ts Temperature 2023-11-10 10:58:00.000 97.6 [degF] Temperature 2023-11-06 13:31:00.000 97.9 [degF] Temperature 2023-10-28 11:18:00.000 97.1 [degF] Temperature 2023-10-21 11:33:00.000 97 [degF] Temperature 2023-10-12 11:20:00.000 97.3 [degF] Temperature 2023-10-05 10:04:00.000 97.2 [degF] Temperature 2023-09-30 11:26:00.000 97.9 [degF] Temperature 2023-09-24 11:39:00.000 97.6 [degF] Temperature 2023-09-16 11:14:00.000 97.8 [degF] BMI (%) 2023-09-30 11:26:00.000 27 kg/m2 Height 2023-09-30 11:26:00.000 68 [in_us] Pulse 2023-11-10 10:58:00.000 77 /min Pulse 2023-11-06 13:31:00.000 78 /min Pulse 2023-10-28 11:18:00.000 75 /min Pulse 2023-10-21 11:33:00.000 75 /min Pulse 2023-10-12 11:20:00.000 70 /min Pulse 2023-10-05 10:04:00.000 70 /min Pulse 2023-09-30 11:26:00.000 69 /min Pulse 2023-09-24 11:39:00.000 70 /min Pulse 2023-09-16 11:14:00.000 71 /min O2 Saturation (%) 2023-11-10 10:58:00.000 99 % O2 Saturation (%) 2023-11-06 13:31:00.000 98 % O2 Saturation (%) 2023-10-28 11:18:00.000 100 % O2 Saturation (%) 2023-10-21 11:33:00.000 99 % O2 Saturation (%) 2023-10-12 11:20:00.000 99 % O2 Saturation (%) 2023-10-05 10:04:00.000 99 % O2 Saturation (%) 2023-09-30 11:26:00.000 99 % O2 Saturation (%) 2023-09-24 11:39:00.000 100 % O2 Saturation (%) 2023-09-16 11:23:00.000 98 % Respirations 2023-11-10 10:58:00.000 20 /min Respirations 2023-11-06 13:31:00.000 18 /min Respirations 2023-10-28 11:18:00.000 20 /min Respirations 2023-10-21 11:33:00.000 18 /min Respirations 2023-10-12 11:20:00.000 18 /min Respirations 2023-10-05 10:04:00.000 18 /min Respirations 2023-09-30 11:26:00.000 20 /min Respirations 2023-09-24 11:39:00.000 18 /min Respirations 2023-09-16 11:14:00.000 20 /min Weight (lbs) 2023-11-06 13:31:00.000 180.5 [lb_av] Weight (lbs) 2023-10-28 11:18:00.000 181 [lb_av] Weight (lbs) 2023-10-21 11:33:00.000 180 [lb_av] Weight (lbs) 2023-10-12 11:20:00.000 181.5 [lb_av] Weight (lbs) 2023-10-05 10:04:00.000 181.5 [lb_av] Weight (lbs) 2023-09-30 11:26:00.000 178 [lb_av] Weight (lbs) 2023-09-24 11:39:00.000 181.5 [lb_av] Weight (lbs) 2023-09-16 11:14:00.000 180 [lb_av] Systolic Blood Pressure 2023-11-10 10:58:00.000 102 mm [Hg] Systolic Blood Pressure 2023-11-06 13:31:00.000 110 mm [Hg] Systolic Blood Pressure 2023-10-28 11:18:00.000 106 mm [Hg] Systolic Blood Pressure 2023-10-21 11:33:00.000 102 mm [Hg] Systolic Blood Pressure 2023-10-12 11:20:00.000 98 mm[ Hg] Systolic Blood Pressure 2023-10-05 10:04:00.000 106 mm [Hg] Systolic Blood Pressure 2023-09-30 11:26:00.000 124 mm [Hg] Systolic Blood Pressure 2023-09-24 11:39:00.000 86 mm[ Hg] Systolic Blood Pressure 2023-09-16 11:14:00.000 124 mm [Hg] Diastolic Blood Pressure 2023-11-10 10:58:00.000 60 mm [Hg] Diastolic Blood Pressure 2023-11-06 13:31:00.000 60 mm [Hg] Diastolic Blood Pressure 2023-10-28 11:18:00.000 62 mm [Hg] Diastolic Blood Pressure 2023-10-21 11:33:00.000 66 mm [Hg] Diastolic Blood Pressure 2023-10-12 11:20:00.000 62 mm [Hg] Diastolic Blood Pressure 2023-10-05 10:04:00.000 82 mm [Hg] Diastolic Blood Pressure 2023-09-30 11:26:00.000 60 mm [Hg] Diastolic Blood Pressure 2023-09-24 11:39:00.000 60 mm [Hg] Diastolic Blood Pressure 2023-09-16 11:14:00.000 72 mm [Hg] Plan of Treatment Planned Activity Planned Date Details Comments Future Scheduled Test SKILLED NU RSE TO EVALUATE PATIENT, IDENTIFY PRIMARY AND CO-MORBID CONDITIONS CODED PER CODING GUIDELINES, AND DEVELOP PATIENT SPECIFIC PLAN OF CARE THAT INCLUDES PATIENT GOAL FOR HOME HEALTH. [code = SKILLED NURSE TO EVALUATE PATIENT, IDENTIFY PRIMARY AND CO-MORBID CONDITIONS CODED PER CODING GUIDELINES, AND DEVELOP PATIENT SPECIFIC PLAN OF CARE THAT INCLUDES PATIENT GOAL FOR HOME HEALTH.] Future Scheduled Test SKILLED NU RSE TO REVIEW PATIENT MEDICATIONS. INSTRUCT PATIENT/CAREGIVER ON MONITORING OF EFFECTIVENESS, ADVERSE DRUG REACTIONS, SIDE EFFECTS OF ALL MEDICATIONS (PRESCRIPTION/-OTC), AND HOW AND WHEN TO REPORT PROBLEMS. [code = SKILLED NURSE TO REVIEW PATIENT MEDICATIONS. INSTRUCT PATIENT/CAREGIVER ON MONITORING OF EFFECTIVENESS, ADVERSE DRUG REACTIONS, SIDE EFFECTS OF ALL MEDICATIONS (PRESCRIPTION/-OTC), AND HOW AND WHEN TO REPORT PROBLEMS.] Future Scheduled Test SKILLED NU RSE TO ASSESS ANXIETY AND PROVIDE ASSISTANCE TO PATIENT FOR UNDERSTANDING AND MANAGEMENT OF FEELINGS. [code = SKILLED NURSE TO ASSESS ANXIETY AND PROVIDE ASSISTANCE TO PATIENT FOR UNDERSTANDING AND MANAGEMENT OF FEELINGS.] Future Scheduled Test SKILLED NU RSE FOR O/A, TEACHING, AND MANAGEMENT OF HLD, CAD, CARDIOMYOPATHY, TACHYCARDIA. [code = SKILLED NURSE FOR O/A, TEACHING, AND MANAGEMENT OF HLD, CAD, CARDIOMYOPATHY, TACHYCARDIA.] Future Scheduled Test SKILLED NU RSE FOR O/A, TEACHING AND MANAGEMENT OF CKD, BPH FOR EARLY IDENTIFICATION OF EXACERBATION OF DISEASE PROCESS [code = SKILLED NURSE FOR O/A, TEACHING AND MANAGEMENT OF CKD, BPH FOR EARLY IDENTIFICATION OF EXACERBATION OF DISEASE PROCESS] Future Scheduled Test SKILLED NU RSE FOR O/A OF RESPIRATORY SYSTEM TO IDENTIFY CHANGES ASSOCIATED WITH EXACERBATION AND TO PROVIDE SKILLED TEACHING ON MANAGEMENT OF CLINT, PULMONARY HNT PROCESS. [code = SKILLED NURSE FOR O/A OF RESPIRATORY SYSTEM TO IDENTIFY CHANGES ASSOCIATED WITH EXACERBATION AND TO PROVIDE SKILLED TEACHING ON MANAGEMENT OF CLINT, PULMONARY HNT PROCESS.] Future Scheduled Test SKILLED NU RSE TO ASSESS PATIENTS PSYCHOSOCIAL STATUS TO IDENTIFY POTENTIAL ISSUES THAT MAY COMPLICATE THE PROVISION OF THE PLAN OF CARE INCLUDING THE PATIENTS ABILITY TO ACCESS COMMUNITY RESOURCES AND PSYCHOSOCIAL SUPPORT SERVICES. [code = SKILLED NURSE TO ASSESS PATIENTS PSYCHOSOCIAL STATUS TO IDENTIFY POTENTIAL ISSUES THAT MAY COMPLICATE THE PROVISION OF THE PLAN OF CARE INCLUDING THE PATIENTS ABILITY TO ACCESS COMMUNITY RESOURCES AND PSYCHOSOCIAL SUPPORT SERVICES.] Future Scheduled Test SKILLED NU RSE TO PERFORM AND RECORD BLOOD SUGAR READING PRN FOR SIGNS AND SYMPTOMS OF HYPO/HYPERGLYCEMIA. [code = SKILLED NURSE TO PERFORM AND RECORD BLOOD SUGAR READING PRN FOR SIGNS AND SYMPTOMS OF HYPO/HYPERGLYCEMIA.] Future Scheduled Test SKILLED NU RSE FOR O/A TO IDENTIFY CHANGES ASSOCIATED WITH APHASIA, HEMIPLEGIA AND PROVIDE INSTRUCTION RELATED TO SAFETY MEASURES TO PREVENT INJURY SECONDARY TO IMPAIRED NEUROLOGICAL STATUS. SKILLED NURSE TO REPORT SIGNIFICANT CHANGES OF NEUROLOGIC STATUS TO PHYSICIAN FOR EARLY INTERVENTION. [code = SKILLED NURSE FOR O/A TO IDENTIFY CHANGES ASSOCIATED WITH APHASIA, HEMIPLEGIA AND PROVIDE INSTRUCTION RELATED TO SAFETY MEASURES TO PREVENT INJURY SECONDARY TO IMPAIRED NEUROLOGICAL STATUS. SKILLED NURSE TO REPORT SIGNIFICANT CHANGES OF NEUROLOGIC STATUS TO PHYSICIAN FOR EARLY INTERVENTION.] Future Scheduled Test SKILLED NU RSE TO INSTRUCT PATIENT/CAREGIVER ON SIGNS AND SYMPTOMS, RISK FACTORS, COMPLICATIONS, AND MANAGEMENT OF ATRIAL FIBRILLATION. [code = SKILLED NURSE TO INSTRUCT PATIENT/CAREGIVER ON SIGNS AND SYMPTOMS, RISK FACTORS, COMPLICATIONS, AND MANAGEMENT OF ATRIAL FIBRILLATION.] Future Scheduled Test SKILLED NU RSE TO INSTRUCT ON SAFETY MEASURES TO PREVENT INJURY SECONDARY TO SEIZURE DISORDER/IMPAIRED NEUROLOGICAL STATUS. [code = SKILLED NURSE TO INSTRUCT ON SAFETY MEASURES TO PREVENT INJURY SECONDARY TO SEIZURE DISORDER/IMPAIRED NEUROLOGICAL STATUS.] Future Scheduled Test SKILLED NU RSE FOR O/A, TEACHING AND SELF-MANAGEMENT RELATED TO HEART FAILURE. INSTRUCT PATIENT/CAREGIVER ON SIGNS AND SYMPTOMS OF EXACERBATION TO REPORT AND IMPORTANCE OF OBTAINING AND RECORDING DAILY WEIGHT AND/OR MEASUREMENTS. SN OR TRAINED PATIENT/CAREGIVER TO OBTAIN WEIGHT DAILY AND WEIGHT GAIN OF 2 LBS OVERNIGHT OR 5 LBS IN 1 WEEK TO BE REPORTED TO PHYSICIAN/PROVIDER. IF UNABLE TO WEIGH PATIENT, SN OR TRAINED PATIENT/CAREGIVER TO OBTAIN MEASUREMENT OF L CALF IN CM DAILY AND REPORT AN INCREASE OF 1 CM TO PHYSICIAN/PROVIDER. [code = SKILLED NURSE FOR O/A, TEACHING AND SELF-MANAGEMENT RELATED TO HEART FAILURE. INSTRUCT PATIENT/CAREGIVER ON SIGNS AND SYMPTOMS OF EXACERBATION TO REPORT AND IMPORTANCE OF OBTAINING AND RECORDING DAILY WEIGHT AND/OR MEASUREMENTS. SN OR TRAINED PATIENT/CAREGIVER TO OBTAIN WEIGHT DAILY AND WEIGHT GAIN OF 2 LBS OVERNIGHT OR 5 LBS IN 1 WEEK TO BE REPORTED TO PHYSICIAN/PROVIDER. IF UNABLE TO WEIGH PATIENT, SN OR TRAINED PATIENT/CAREGIVER TO OBTAIN MEASUREMENT OF L CALF IN CM DAILY AND REPORT AN INCREASE OF 1 CM TO PHYSICIAN/PROVIDER.] Future Scheduled Test SKILLED NU RSE TO INSTRUCT PATIENT/CAREGIVER ON WARNING SIGNS OF CVA, RISK FACTORS, AND METHODS TO MANAGE AGRICULTURAL PRODUCTION ENGINEER EFFECTS OF CVA. [code = SKILLED NURSE TO INSTRUCT PATIENT/CAREGIVER ON WARNING SIGNS OF CVA, RISK FACTORS, AND METHODS TO MANAGE AGRICULTURAL PRODUCTION ENGINEER EFFECTS OF CVA.] Future Scheduled Test SKILLED NU RSE FOR O/A AND TEACHING OF DIABETIC MANAGEMENT INCLUDING BLOOD SUGAR MONITORING/USE OF GLUCOMETER, DIABETIC DIET, LOWER EXTREMITY SKIN INSPECTION, PROPER SKIN/FOOT CARE, AND SIGNS AND SYMPTOMS HYPO/HYPERGLYCEMIA TO REPORT. [code = SKILLED NURSE FOR O/A AND TEACHING OF DIABETIC MANAGEMENT INCLUDING BLOOD SUGAR MONITORING/USE OF GLUCOMETER, DIABETIC DIET, LOWER EXTREMITY SKIN INSPECTION, PROPER SKIN/FOOT CARE, AND SIGNS AND SYMPTOMS HYPO/HYPERGLYCEMIA TO REPORT.] Future Scheduled Test PATIENT JEFFERS S A RISK OF HOSPITALIZATION AND ED USE. SKILLED NURSE TO ESTABLISH SUPPORT MEASURES TO MINIMIZE RISK OF HOSPITALIZATION AND ED USE, AND INSTRUCT PATIENT/CAREGIVER ON METHODS TO REDUCE AVOIDABLE HOSPITALIZATION AND ED USE. [code = PATIENT HAS A RISK OF HOSPITALIZATION AND ED USE. SKILLED NURSE TO ESTABLISH SUPPORT MEASURES TO MINIMIZE RISK OF HOSPITALIZATION AND ED USE, AND INSTRUCT PATIENT/CAREGIVER ON METHODS TO REDUCE AVOIDABLE HOSPITALIZATION AND ED USE.] Future Scheduled Test SKILLED NU RSE TO PROVIDE INSTRUCTION TO PATIENT/CAREGIVER RELATED TO DISCHARGE PLANNING. [code = SKILLED NURSE TO PROVIDE INSTRUCTION TO PATIENT/CAREGIVER RELATED TO DISCHARGE PLANNING.] Future Scheduled Test SKILLED NU RSE TO PERFORM HOME SAFETY AND FALL ASSESSMENT AND PROVIDE INSTRUCTION TO IMPLEMENT HOME SAFETY AND FALL PREVENTION STRATEGIES. [code = SKILLED NURSE TO PERFORM HOME SAFETY AND FALL ASSESSMENT AND PROVIDE INSTRUCTION TO IMPLEMENT HOME SAFETY AND FALL PREVENTION STRATEGIES.] Future Scheduled Test SKILLED NU RSE FOR OBSERVATION AND ASSESSMENT OF PATIENTS PAIN LEVEL AND EFFECTIVENESS OF PAIN MANAGEMENT REGIMEN. SKILLED NURSE TO INSTRUCT PATIENT/CAREGIVER REGARDING PHARMACOLOGIC AND NON-PHARMACOLOGIC PAIN CONTROL MEASURES. SKILLED NURSE TO REPORT TO PHYSICIAN IF PAIN IS UNCONTROLLED WITH CURRENT PAIN MANAGEMENT REGIMEN. [code = SKILLED NURSE FOR OBSERVATION AND ASSESSMENT OF PATIENTS PAIN LEVEL AND EFFECTIVENESS OF PAIN MANAGEMENT REGIMEN. SKILLED NURSE TO INSTRUCT PATIENT/CAREGIVER REGARDING PHARMACOLOGIC AND NON-PHARMACOLOGIC PAIN CONTROL MEASURES. SKILLED NURSE TO REPORT TO PHYSICIAN IF PAIN IS UNCONTROLLED WITH CURRENT PAIN MANAGEMENT REGIMEN.] Future Scheduled Test SKILLED NU RSE TO ASSESS PATIENT'S SKIN INTEGRITY AND INSTRUCT PATIENT/CAREGIVER ON MEASURES TO PREVENT PRESSURE ULCERS. [code = SKILLED NURSE TO ASSESS PATIENT'S SKIN INTEGRITY AND INSTRUCT PATIENT/CAREGIVER ON MEASURES TO PREVENT PRESSURE ULCERS.] Future Scheduled Test SKILLED NU RSE TO PROVIDE ASSESSMENT AND TEACHING/REINFORCEMENT OF MANAGEMENT OF DEPRESSION INCLUDING DISEASE PROCESS, MEDICATION MANAGEMENT, COPING SKILLS AND IDENTIFY CHANGES ASSOCIATED WITH DEPRESSIVE DISORDERS FOR EARLY INTERVENTION. [code = SKILLED NURSE TO PROVIDE ASSESSMENT AND TEACHING/REINFORCEMENT OF MANAGEMENT OF DEPRESSION INCLUDING DISEASE PROCESS, MEDICATION MANAGEMENT, COPING SKILLS AND IDENTIFY CHANGES ASSOCIATED WITH DEPRESSIVE DISORDERS FOR EARLY INTERVENTION. ] Goal 2023-11-10 Patient Goal - TO STAY HOME Goal 2023-05-14 Patient Goal - TO STAY HOME Goal 2023-06-09 Patient Goal - TO STAY HOME Goal 2023-09-11 Patient Goal - TO STAY HOME Goal 2023-07-13 Patient Goal - TO STAY HOME Goal 2023-09-30 Patient Goal - TO STAY HOME Goal Provider Goal - A PLAN OF CARE WILL BE ESTABLISHED THAT MEETS PATIENT'S MCC NEEDS AND INCLUDES PATIENT GOAL FOR HOME HEALTH. Goal Provider Goal - PATIENT/CAREGIVER WILL VERBALIZE UNDERSTANDING OF EDUCATION PROVIDED ON MEDICATIONS BY THE END OF THE CERTIFICATION PERIOD. Goal Provider Goal - SYMPTOMS OF ANXIETY ARE IDENTIFIED AND INTERVENTIONS INITIATED TO ENABLE PATIENT TO UNDERSTAND AND MANAGE FEELINGS THROUGHOUT EPISODE. Goal Provider Goal - PATIENT/CAREGIVER WILL VERBALIZE/DEMONSTRATE MANAGEMENT OF CARDIAC DISEASE PROCESS AND EXACERBATIONS WILL BE IDENTIFIED AND PROMPTLY REPORTED THROUGHOUT THE CERTIFICATION PERIOD. Goal Provider Goal - PATIENT/CAREGIVER WILL VERBALIZE UNDERSTANDING OF GENITOURINARY DISEASE PROCESS, AND EXACERBATIONS OF GENITOURINARY DISEASE WILL BE PROMPTLY IDENTIFIED FOR EARLY INTERVENTION THROUGHOUT THE CERTIFICATION PERIOD. Goal Provider Goal - PATIENT/CAREGIVER WILL VERBALIZE/DEMONSTRATE MANAGEMENT OF RESPIRATORY DISEASE PROCESS. CHANGES IN RESPIRATORY STATUS WILL BE IDENTIFIED AND REPORTED TO PHYSICIAN FOR PROMPT INTERVENTION THROUGHOUT THE CERTIFICATION PERIOD. Goal Provider Goal - CHANGES IN PSYCHOSOCIAL STATUS WILL BE IDENTIFIED AND PLAN IMPLEMENTED TO MINIMIZE PATIENT RISKS THROUGHOUT THE CERTIFICATION PERIOD. Goal Provider Goal - BLOOD SUGAR READING WILL BE OBTAINED ORDERED THROUGHOUT CERTIFICATION PERIOD. Goal Provider Goal - CHANGES IN NEUROLOGIC STATUS WILL BE IDENTIFIED AND REPORTED TO THE PHYSICIAN FOR PROMPT INTERVENTION OF ASSOCIATED RISK. PATIENT/CAREGIVER WILL VERBALIZE/DEMONSTRATE APPROPRIATE SAFETY MEASURES TO PREVENT INJURY BY THE END OF THE CERTIFICATION PERIOD. Goal Provider Goal - PATIENT/CAREGIVER WILL VERBALIZE UNDERSTANDING OF SIGNS AND SYMPTOMS, COMPLICATIONS, AND MANAGEMENT OF ATRIAL FIBRILLATION THROUGHOUT THE CERTIFICATION PERIOD. Goal Provider Goal - PATIENT/CAREGIVER WILL VERBALIZE/DEMONSTRATE SEIZURE PRECAUTIONS AND CARE OF PATIENT TO PROMOTE SAFETY AND PREVENT INJURY BY THE END OF THE CERTIFICATION PERIOD. Goal Provider Goal - PATIENT/CAREGIVER WILL VERBALIZE/DEMONSTRATE KNOWLEDGE AND MANAGEMENT OF HEART FAILURE DISEASE PROCESS BY END OF EPISODE. Goal Provider Goal - PATIENT/CAREGIVER WILL DEMONSTRATE COMPLIANCE WITH TREATMENT REGIME AND VERBALIZE SIGNS AND SYMPTOMS TO REPORT WELL POSSIBLE COMPLICATIONS OF CVA BY END OF EPISODE. Goal Provider Goal - PATIENT/CAREGIVER WILL VERBALIZE/DEMONSTRATE KNOWLEDGE OF DIABETIC MANAGEMENT. CHANGES IN DIABETIC STATUS WILL BE IDENTIFIED AND REPORTED TO PHYSICIAN FOR PROMPT INTERVENTION THROUGHOUT THE CERTIFICATION PERIOD. Goal Provider Goal - PATIENT WILL HAVE SUPPORT MEASURES ESTABLISHED TO PREVENT HOSPITALIZATION AND ED USE AND PATIENT/CAREGIVER WILL VERBALIZE/DEMONSTRATE METHODS TO REDUCE AVOIDABLE HOSPITALIZATION AND ED USE BY END OF EPISODE. Goal Provider Goal - PATIENT/CAREGIVER WILL VERBALIZE UNDERSTANDING OF DISCHARGE PLANNING INSTRUCTIONS BY DATE OF DISCHARGE. Goal Provider Goal - PATIENT/CAREGIVER WILL VERBALIZE/DEMONSTRATE EFFECTIVE HOME SAFETY AND FALL PREVENTION STRATEGIES THROUGHOUT CERTIFICATION PERIOD. Goal Provider Goal - PATIENT/CAREGIVER WILL DEMONSTRATE UNDERSTANDING OF PHARMACOLOGIC AND NONPHARMACOLOGIC PAIN CONTROL MEASURES AND PATIENT WILL HAVE IMPROVEMENT IN PAIN INTERFERING WITH ACTIVITY EVIDENCED BY PAIN CONTROLLED AT LEVEL OF 7 OR LESS BY END OF CERTIFICATION PERIOD. Goal Provider Goal - PATIENT/CAREGIVER WILL VERBALIZE UNDERSTANDING OF PRESSURE ULCER PREVENTION BY END OF THE EPISODE. Goal Provider Goal - PATIENT/CAREGIVER WILL VERBALIZE/DEMONSTRATE UNDERSTANDING OF THE MANAGEMENT OF DEPRESSION THROUGHOUT THE CERTIFICATION PERIOD AND SYMPTOMS ARE IDENTIFIED AND MANAGED TO MAINTAIN PATIENT SAFETY IN THE HOME. Reason for Visit INDEPENDENT IN THE HOME Encounters Start Date/Time End Date/Time Encounter Type Admission Type Attending Rust Care Department Encounter ID Discharge Date Discharge Status Discharge Condition Discharge Reason Percent Goals Met 2023-03-17 00:00:00 2023-11-10 00:00:00 Outpatient RECERTIFIC ATION DAT DRIVERY [facility] [id number] 2023-11-10 00:00:00 DISCHARGE TO HOME OR SELF CARE INDEPENDEN T IN THE HOME GOALS MET ( ONLY) 88.37
[2024-03-31 13:12] VITALS: BP 100/68; PULSE 78; O2SAT 100; BMI 28.5
--- NOTE | 2024-03-31 13:12 | A.OFFVIS_ITS ---
Vital Signs 03/31/24 13:12 Height 5 ft 9 in Weight 192 lb 14.472 oz BMI 28.5 BP 100/68 Blood Pressure Location Rt brachial Position Sitting Pulse 78 Pulse Source Pulse Oximeter Pulse Oximetry (%) 100 Oxygen Delivery Method Room Air Intake Visit Reasons: Obstructive sleep apnea Allergies No Known Allergies Allergy (Verified 03/31/24 13:15) HPI Comments Details: The patient is a 73-year-old gentleman with a known history of cardiomyopathy, complex sleep apnea and cerebrovascular disease. Apparently he was at and [facility] he started developing worsening shortness of breath. He was admitted to a hospital for congestive heart failure. [place] was coming [place] his noticed increasing lower extremity edema and shortness of breath not abdominal girth. She crease is Lasix briefly. The patient then was taken to [facility] on the night after his arrival because of worsening shortness of breath and respiratory distress. The patient had a proBNP of 5000 and also an x-ray with extensive pulmonary edema. Based on the evaluation was told to take additional oral diuretic and was sent home. However, his condition obviously worsen he was taken to [facility] he was admitted to the hospital. There he was evaluated by Cardiology. He had an ejection fraction about 40% per report. The patient also had a CT scan of the chest but I do not have those results was noted to have pleural effusions. However with picture of congestive heart failure the patient was diuresed. He did not require thoracentesis. Subsequently was discharged from the hospital on Lasix twice a day. Since he has been discharged from the hospital was has wane him closely. Will we will we lb since he was discharged couple days a on examination does have some crackles bilaterally suggestive of congestive heart failure. I did recommend that he take an additional Lasix tablet today. Will continue to be monitored closely. He is trying to maintain a low-sodium or note sodium diet as much as possible. The patient That will see Cardiology due to try to avoid rehospitalization. The medications will be adjusted the the patient had full doctor had that in the hospital so therefore I will will get a referral for urgent visit with [facility] cardiology. in the meantime he has been using CPAP. Patient understands that the CPAP becomes helpful but decrease in some of the work from the heart. 07/15/2022 the patient is here for a pulmonary follow-up visit. Overall the patient continues to be doing about the same. Continues to have issues with his residual infection his stroke. Still has aphasia and difficulty following commands. Otherwise patient is doing well. He continues uses CPAP at nighttime. The CPAP therapy continues to be affecting beneficial. He does use it for more than 4 hours a night. Recently however the machine has not been working appropriately. He and his spoke to the [employer], [place] and they still recommend that he get a replacement machine at this time. In view of this mi function machine any significant cerebrovascular and cardiovascular disease will be important for her to get a replacement machine for him to continue to use it treating his underlying sleep apnea. We did review his last imaging studies including a chest x-ray from the fall 2021 when he had congestive heart failure. The patient now is doing better with his medications and his cardiac function appears to be stable. 05/22/2023 the patient is here for a hospital follow-up visit. The patient has had a very eventful 6 months. He has been in and out of [facility] for heart failure. The patient has had significant flash pulmonary edema resulted in respiratory failure. The patient has been followed closely by Cardiology. He also developed a component of renal insufficiency suggesting pulmonary renal syndrome. The states that at 1 point they did talk to her about hospice care because of significant cardiomyopathy. I do not have his EF. Does have a defibrillator. The defibrillator did go off because of ventricular fibrillation. Currently he is on amiodarone small dose of 200 mg daily. He is also on Eliquis. Continues uses CPAP the CPAP therapy continues to be affecting beneficial. I did request a download. Appears that he is having significant central apneas because of his complex sleep apnea. Prior to having the CPAP he did have an ASV. However, now with a cardiomyopathy this is not warranted. Therefore, will go head and try to decrease the CPAP pressures in order to avoid worsening central apneas. 11/26/2023 the patient is here for a pulmonary follow-up visit. The patient has been using the CPAP every night. The CPAP therapy has been helpful for him. Sometimes he wears his mask losing does have significant air leakage her. His constantly is trying to fix it. He also complains of some dyspnea on exertion. [id number] severity. During the visit we did go for brief walking oximetry he did very well no evidence of any hypoxia. He did have a tremor but heart rate was stable. The patient has been on APAP 6-10. I did download the machine. His AHI however is 24 events per hour primarily of them are central apneas. We know that he has complex sleep apnea. He does have a cardiomyopathy so is limited as far as the PAP therapies that may be provided. In the meantime I do believe that a titration study will be helpful to see if we can appropriately tailor his therapy more adequately. In addition to that will go ahead and decrease the pressures to 6-8 to try to minimize in the central apneas. He does have issues with communication specially after his stroke. So therefore will have to make sure that his can stay with him during the study to help with communication. 03/31/2024 the patient is here for a pulmonary follow-up visit. Overall he is doing okay. He had try the higher pressure on the CPAP. But, he had a hard time tolerating it. Therefore change it from CPAP 16 to APAP 12-18. Unfortunately, he has been losing up his mask because is too tight and have and he has a craniotomy scar that this tender in the head gear goes over it. Therefore, I do not believe that the CPAP is working effectively with the lose mask resulting in air leakage. Therefore, I did provide him with an F 40 medium mask that seem to fit well and did not effect his craniotomy scar. The patient will continue to try to tolerate the mask in the appropriate location to maintain good air flow. Although the AHI is elevated at 15. I do believe that the air leakage is causing it to be obscured. Therefore, the family will call back in a few weeks after he gets used to this new mask and request a download to see how effective the mask is working. If the AHI continues to be elevated then possibly switch him back to CPAP of 14 to see if he can tolerate that pressure instead. From a respiratory status the patient is doing well denies any coughing or shortness of breath. [facility]LY [facility] Medical History (Updated 11/26/23 @ 22:36 by Mnany Dodd MD) Cardiomyopathy Dyspnea Pleural effusion Aphasia Complex sleep apnea syndrome Social History Patient Tobacco Use Status: Never used Tobacco Review of Systems Const Unobtainable due to mental condition ( Patient suffers from aphasia after a CVA) Card Reports leg edema, Reports dyspnea and Reports dyspnea on exertion Resp Reports dyspnea and Reports dyspnea on exertion Physical Exam Vital Signs: Last Vital Signs Pulse 78 03/31/24 13:12 BP 100/68 03/31/24 13:12 Pulse Ox 100 03/31/24 13:12 Oxygen Delivery Method Room Air 03/31/24 13:12 BMI result Body Mass Index 28.5 Const General: comfortable HEENT Head: Yes normal to inspection Eyes General: appearance normal, both eyes and all related structures Neck Neck: Yes supple Chest Chest palpation & inspection: normal inspection of the chest Resp Effort & Inspection: normal respiratory effort Auscultation: diminished lung sounds Cardio Rate: regular rate Rhythm: regular rhythm Heart sounds: S1 normal heart sound present, S2 normal heart sound present and Murmur heart sound present GI Auscultation: normal bowel sounds Skin General skin exam: no rashes or lesions noted Extrem General: No clubbing, No cyanosis and Yes edema Assessment & Plan Assessment & Plan (1) CHF (congestive heart failure): Code(s): I50.9 - Heart failure, unspecified Category: Medical Qualifiers: Heart failure type: systolic Heart failure chronicity: chronic Qualified Code(s): I50.22 - Chronic systolic (congestive) heart failure (2) Complex sleep apnea syndrome: Code(s): G47.31 - Primary central sleep apnea Category: Medical (3) Aphasia: Code(s): R47.01 - Aphasia Category: Medical (4) Pleural effusion: Code(s): J90 - Pleural effusion, not elsewhere classified Category: Medical (5) Dyspnea: Code(s): R06.00 - Dyspnea, unspecified Category: Medical Qualifiers: Dyspnea type: orthopnea Qualified Code(s): R06.01 - Orthopnea Plan Diuresis as tolerated Trial new mask F40 medium continue APAP, adjusted to 12-18, consider CPAP 14 if no better Follow-up in 4-6 months Coding Level of Care Code Est Pt Level 4 (09354) Diagnoses Chronic systolic congestive heart failure I50.22 Heart failure type: systolic Heart failure chronicity: chronic Complex sleep apnea syndrome G47.31 Aphasia R47.01 Pleural effusion J90 Orthopnea R06.01 Dyspnea type: orthopnea Time Spent (min) 16
== END 2024-03-31 13:44 | disposition home or self-care (01) ==
PROVIDERS: PCP Internal Medicine; Visit Provider Hospitalist
DX: I50.22 Chronic systolic (congestive) heart failure (principal); G47.31 Primary central sleep apnea; R47.01 Aphasia; J90 Pleural effusion, not elsewhere classified; R06.01 Orthopnea
CPT/HCPCS: 99214

== ENCOUNTER → 2024-03-31 13:05 | Outpatient (BNVA) | payer MEDICARE, SELFPAY | PROVIDERS: PCP Internal Medicine; Visit Provider Hospitalist | DX: G47.31 Primary central sleep apnea (principal); I50.22 Chronic systolic (congestive) heart failure; R47.01 Aphasia; J90 Pleural effusion, not elsewhere classified; R06.01 Orthopnea | CPT/HCPCS: 99212 ==

== ENCOUNTER 2024-10-03 12:52 | Outpatient (AMB) | payer MEDICARE, SELFPAY ==
--- NOTE | 2024-10-03 13:00 | MHC.OFFVIS ---
Vital Signs 10/03/24 13:01 Height 5 ft 9 in Weight 192 lb 14.472 oz BMI 28.5 BP 90/68 Blood Pressure Location Lt brachial Position Sitting Pulse 78 Pulse Source Pulse Oximeter Pulse Oximetry (%) 96 Oxygen Delivery Method Room Air Intake Visit Reasons: Obstructive sleep apnea Assistant Fitness Manager Required: No Allergies No Known Allergies Allergy (Verified 10/03/24 13:04) HPI Comments Details: The patient is a 74-year-old gentleman with a known history of cardiomyopathy, complex sleep apnea and cerebrovascular disease. Apparently he was at and states he started developing worsening shortness of breath. He was admitted to a hospital for congestive heart failure. While was coming back from [place] of [place] his noticed increasing lower extremity edema and shortness of breath not abdominal girth. She crease is Lasix briefly. The patient then was taken to [facility] on the night after his arrival because of worsening shortness of breath and respiratory distress. The patient had a proBNP of 5000 and also an x-ray with extensive pulmonary edema. Based on the evaluation was told to take additional oral diuretic and was sent home. However, his condition obviously worsen he was taken to [facility] he was admitted to the hospital. There he was evaluated by Cardiology. He had an ejection fraction about 40% per report. The patient also had a CT scan of the chest but I do not have those results was noted to have pleural effusions. However with picture of congestive heart failure the patient was diuresed. He did not require thoracentesis. Subsequently was discharged from the hospital on Lasix twice a day. Since he has been discharged from the hospital was has wane him closely. Will we will we lb since he was discharged couple days a on examination does have some crackles bilaterally suggestive of congestive heart failure. I did recommend that he take an additional Lasix tablet today. Will continue to be monitored closely. He is trying to maintain a low-sodium or note sodium diet as much as possible. The patient That will see Cardiology due to try to avoid rehospitalization. The medications will be adjusted the the patient had full doctor had that in the hospital so therefore I will will get a referral for urgent visit with [facility] cardiology. in the meantime he has been using CPAP. Patient understands that the CPAP becomes helpful but decrease in some of the work from the heart. 07/15/2022 the patient is here for a pulmonary follow-up visit. Overall the patient continues to be doing about the same. Continues to have issues with his residual infection his stroke. Still has aphasia and difficulty following commands. Otherwise patient is doing well. He continues uses CPAP at nighttime. The CPAP therapy continues to be affecting beneficial. He does use it for more than 4 hours a night. Recently however the machine has not been working appropriately. He and his spoke to the [employer], [employer] and they still recommend that he get a replacement machine at this time. In view of this mi function machine any significant cerebrovascular and cardiovascular disease will be important for her to get a replacement machine for him to continue to use it treating his underlying sleep apnea. We did review his last imaging studies including a chest x-ray from the fall 2021 when he had congestive heart failure. The patient now is doing better with his medications and his cardiac function appears to be stable. 05/22/2023 the patient is here for a hospital follow-up visit. The patient has had a very eventful 6 months. He has been in and out of [facility] for heart failure. The patient has had significant flash pulmonary edema resulted in respiratory failure. The patient has been followed closely by Cardiology. He also developed a component of renal insufficiency suggesting pulmonary renal syndrome. The states that at 1 point they did talk to her about hospice care because of significant cardiomyopathy. I do not have his EF. Does have a defibrillator. The defibrillator did go off because of ventricular fibrillation. Currently he is on amiodarone small dose of 200 mg daily. He is also on Eliquis. Continues uses CPAP the CPAP therapy continues to be affecting beneficial. I did request a download. Appears that he is having significant central apneas because of his complex sleep apnea. Prior to having the CPAP he did have an ASV. However, now with a cardiomyopathy this is not warranted. Therefore, will go head and try to decrease the CPAP pressures in order to avoid worsening central apneas. 11/26/2023 the patient is here for a pulmonary follow-up visit. The patient has been using the CPAP every night. The CPAP therapy has been helpful for him. Sometimes he wears his mask losing does have significant air leakage her. His constantly is trying to fix it. He also complains of some dyspnea on exertion. Rnsm-ue-gubiybca severity. During the visit we did go for brief walking oximetry he did very well no evidence of any hypoxia. He did have a tremor but heart rate was stable. The patient has been on APAP 6-10. I did download the machine. His AHI however is 24 events per hour primarily of them are central apneas. We know that he has complex sleep apnea. He does have a cardiomyopathy so is limited as far as the PAP therapies that may be provided. In the meantime I do believe that a titration study will be helpful to see if we can appropriately tailor his therapy more adequately. In addition to that will go ahead and decrease the pressures to 6-8 to try to minimize in the central apneas. He does have issues with communication specially after his stroke. So therefore will have to make sure that his can stay with him during the study to help with communication. 03/31/2024 the patient is here for a pulmonary follow-up visit. Overall he is doing okay. He had try the higher pressure on the CPAP. But, he had a hard time tolerating it. Therefore change it from CPAP 16 to APAP 12-18. Unfortunately, he has been losing up his mask because is too tight and have and he has a craniotomy scar that this tender in the head gear goes over it. Therefore, I do not believe that the CPAP is working effectively with the lose mask resulting in air leakage. Therefore, I did provide him with an F 40 medium mask that seem to fit well and did not effect his craniotomy scar. The patient will continue to try to tolerate the mask in the appropriate location to maintain good air flow. Although the AHI is elevated at 15. I do believe that the air leakage is causing it to be obscured. Therefore, the family will call back in a few weeks after he gets used to this new mask and request a download to see how effective the mask is working. If the AHI continues to be elevated then possibly switch him back to CPAP of 14 to see if he can tolerate that pressure instead. From a respiratory status the patient is doing well denies any coughing or shortness of breath. 10/03/2024 the patient is here for pulmonary follow-up visit. The patient has been having issues with falls and being weak. His is concerned. Because of his comorbidities I do believe that the patient should get a walker. I did recommend Standing walker. She is going to see her primary care next week and they can talk about it further. From a CPAP standpoint he is AHI continues to be high due to the central apneas. Because of his cardiomyopathy using ASV would be potentially catastrophic from a cardiac point of view. Therefore, will go ahead and change his APAP to a CPAP of 13 cm. She will call next week to let me know how he is tolerating it. Seems like the higher pressure it was causing air leakage. Hopefully with a lower pressure he will tolerate it better with less mask leak. The patient also is concerned because there some nonhealing wounds on his heels. He does have diabetes and likely cardiovascular disease. I will put a referral into wound care. Although the patient will talk to primary care to see if they have any other recommendations. [facility] Medical History (Updated 10/03/24 @ 22:01 by Manny Dodd MD) Cardiomyopathy Dyspnea Pleural effusion Aphasia Complex sleep apnea syndrome Social History Patient Tobacco Use Status: Never used Tobacco Review of Systems Const Unobtainable due to mental condition ( Patient suffers from aphasia after a CVA) Card Reports leg edema, Reports dyspnea and Reports dyspnea on exertion Resp Reports dyspnea and Reports dyspnea on exertion Physical Exam Vital Signs: Last Vital Signs Pulse 78 10/03/24 13:01 BP 90/68 10/03/24 13:01 Pulse Ox 96 10/03/24 13:01 Oxygen Delivery Method Room Air 10/03/24 13:01 BMI result Body Mass Index 28.5 Const General: comfortable HEENT Head: Yes normal to inspection Eyes General: appearance normal, both eyes and all related structures Neck Neck: Yes supple Chest Chest palpation & inspection: normal inspection of the chest Resp Effort & Inspection: normal respiratory effort Auscultation: diminished lung sounds Cardio Rate: regular rate Rhythm: regular rhythm Heart sounds: S1 normal heart sound present, S2 normal heart sound present and Murmur heart sound present GI Auscultation: normal bowel sounds Skin General skin exam: induration Extrem General: No clubbing, No cyanosis and Yes edema Assessment & Plan Assessment & Plan (1) CHF (congestive heart failure): Code(s): I50.9 - Heart failure, unspecified Category: Medical Qualifiers: Heart failure chronicity: chronic Heart failure type: systolic Qualified Code(s): I50.22 - Chronic systolic (congestive) heart failure (2) Complex sleep apnea syndrome: Code(s): G47.31 - Primary central sleep apnea Category: Medical (3) Aphasia: Code(s): R47.01 - Aphasia Category: Medical (4) Pleural effusion: Code(s): J90 - Pleural effusion, not elsewhere classified Category: Medical (5) Dyspnea: Code(s): R06.00 - Dyspnea, unspecified Category: Medical Qualifiers: Dyspnea type: orthopnea Qualified Code(s): R06.01 - Orthopnea (6) Pressure sore on heel: Code(s): L89.609 - Pressure ulcer of unspecified heel, unspecified stage Category: Medical Qualifiers: Pressure injury stage: unspecified pressure injury stage Laterality: unspecified laterality Qualified Code(s): L89.609 - Pressure ulcer of unspecified heel, unspecified stage Plan Diuresis as tolerated continue APAP, adjusted to 12-18, adjust to CPAP 13 would recommend a standing walker in view of his worsening LE weakness. Hi risk for fall. Had fall in the recent past. wound care Follow-up in 4-6 months Orders: Referrals Wound Care Referral S91.301A - Unspecified open wound, right foot, initial encounter, S91.302A - Unspecified open wound, left foot, initial encounter Coding Level of Care Code Est Pt Level 4 (53147) Complex EM visit Add On G2211 Diagnoses Chronic systolic congestive heart failure I50.22 Heart failure chronicity: chronic Heart failure type: systolic Complex sleep apnea syndrome G47.31 Aphasia R47.01 Pleural effusion J90 Orthopnea R06.01 Dyspnea type: orthopnea Pressure injury of skin of heel, unspecified injury stage, unspecified laterality L89.609 Pressure injury stage: unspecified pressure injury stage Laterality: unspecified laterality Time Spent (min) 17
[2024-10-03 13:01] VITALS: BP 90/68; PULSE 78; O2SAT 96; BMI 28.5
--- OUTSIDE RECORDS SUMMARY | 2024-10-03 14:14 | XMS_ITS | Clinical Summary ---
Author Organization [facility] Address [address] [place] [address] Care Team Providers [facility] In Home Sales Representative Name Role Phone Unavailable Primary Care Provider Unavailabl e Social History Tobacco Use Types Packs/Day Years Used Date Smoking Tobacco: Never Assessed Sex and Gender Information Value Date Recorded Sex Assigned at Not on file Legal Sex Male 5:28 PM EDT Gender Identity Not on file Sexual Orientation Not on file Plan of Treatment Health Maintenance Due Date Last Done Comments Hepatitis C Virus Screening 1950 DTaP/Tdap/Td Vaccines (1 - Tdap) 1971 Pneumococcal Vaccines 50+ (1 of 1 - PCV) 2002 Zoster (Shingles) Vaccine (1 of 2) 2002 COVID-19 Vaccine ( - 2023-2 5 season) 2023 RSV Vaccine 60 years and old er and Patients (1 - 1-dose 75+ series) 2027 Hepatitis B Vaccines Aged Out No long er eligible based on patient's age to complete this topic
== END 2024-10-03 13:34 | disposition home or self-care (01) ==
LOC: HO.HPS 12:52
PROVIDERS: PCP Internal Medicine; Visit Provider Hospitalist
DX: I50.22 Chronic systolic (congestive) heart failure (principal); G47.31 Primary central sleep apnea; R47.01 Aphasia; J90 Pleural effusion, not elsewhere classified; R06.01 Orthopnea; L89.609 Pressure ulcer of unspecified heel, unspecified stage
CPT/HCPCS: 99214; G2211

== ENCOUNTER → 2024-10-03 12:52 | Outpatient (BNVA) | payer MEDICARE, SELFPAY | PROVIDERS: PCP Internal Medicine; Visit Provider Hospitalist | DX: G47.31 Primary central sleep apnea (principal); R47.01 Aphasia; R06.01 Orthopnea; J90 Pleural effusion, not elsewhere classified; L89.609 Pressure ulcer of unspecified heel, unspecified stage | CPT/HCPCS: 99212 ==